=== PATIENT | male | born 1985 | race Asian ===

== ENCOUNTER 2024-12-23 14:51 | Inpatient (IN) | payer MEDICAID, OTHER ==
[~2024-12-23] VITALS: Ht 167.6 cm; Wt 63.6 kg
[2024-12-23 16:42] LABS: PLATELET COUNT (AUTO) 254 K/uL (150-450); RED BLOOD CELL COUNT(AUTO) 4.66 MIL/uL (4.50-5.90); RED CELL DISTRIBUTION WIDTH 13.5 % (11.5-14.5); WHITE BLOOD COUNT (AUTO) 8.4 K/uL (4.5-11.0)
[2024-12-23 16:50] LABS: CALCIUM, TOTAL 8.2 mg/dL (8.8-10.5); CREATININE 1.09 mg/dL (0.60-1.30); GLOMERULAR FILTR. RATE CALC > 60 mL/min (>60); GLUCOSE,RANDOM 136 mg/dL (70-110); SODIUM SERUM 139 mmol/L (136-145); UREA NITROGEN, BLOOD 24 mg/dL (7-18)
[2024-12-23] MEDS: SODIUM CHLORIDE 0.9% 1,000 ML IV ONE ×2 (16:54→17:41)
[2024-12-23 16:57] LABS: ASPARTATE AMINOTRANSFERASE 21 U/L (15-37); TOTAL PROTEIN, SERUM 6.0 g/dL (6.4-8.2)
[2024-12-23 16:58] LABS: CREATINE KINASE, TOTAL ONLY 393.0 U/L (39-308)
[2024-12-23 17:01] LABS: TROPONIN I-HIGH SENSITIVITY 15 ng/L (<76)
[2024-12-23] MEDS ORDERED: MAGNESIUM HYDROXIDE SUSPENSION 30 ML UDCUP PO PRN (19:00)
[2024-12-23] MEDS ORDERED: ZOLPIDEM TARTRATE 5 MG TABLET PO PRN (19:00)
[2024-12-23] MEDS ORDERED: ACETAMINOPHEN 325 MG TABLET PO PRN (19:00)
[2024-12-23] MEDS ORDERED: IPRATROPIUM BROMIDE 0.5 MG/2.5 ML NEB SOLUTION NEB PRN (19:00)
[2024-12-23] MEDS ORDERED: ALBUTEROL SULFATE 2.5 MG/0.5 ML NEB SOLUTION NEB PRN (19:00)
[2024-12-23] MEDS ORDERED: ONDANSETRON HCL 4 MG/2 ML VIAL IVP PRN (19:00)
[2024-12-23] MEDS ORDERED: BISACODYL 10 MG RECTAL RECTAL SUPPOSITORY PR PRN (19:00)
[2024-12-23] MEDS: ACETAMINOPHEN 500 MG TABLET PO ONE (19:25)
[2024-12-23 23:04] VITALS: BP 139/90; PULSE 84; RESP 19; TEMP 97.5; O2SAT 99
[2024-12-23] MEDS: HEPARIN SODIUM,PORCINE 5,000 UNITS/ML VIAL SQ SCH (23:51)
[2024-12-23 23:54] LABS: APPEARANCE,URINE CLEAR (CLEAR); GLUCOSE, URINE (UA) 70-100 mg/dL (NEGATIVE); LEUKOCYTE ESTERASE ,URINE NEGATIVE (NEGATIVE); NITRATE,URINE NEGATIVE (NEGATIVE); OCCULT BLOOD,URINE NEGATIVE (NEGATIVE); SPECIFIC GRAVITIY, URINE 1.012 (1.003-1.030)
[2024-12-24] MEDS: SODIUM CHLORIDE 0.9% 1,000 ML IV SCH (00:48)
[2024-12-24 05:56] VITALS: BP 157/97; PULSE 89; RESP 19; TEMP 97.7; O2SAT 98
[2024-12-24 08:03] VITALS: BP 130/100; PULSE 95; RESP 19; TEMP 98.4; O2SAT 95
[2024-12-24] MEDS: PANTOPRAZOLE SODIUM 40 MG DR TABLET PO SCH (08:25)
[2024-12-24 15:03] LABS: COVID AG,FIA SOURCE NASAL SWAB
[2024-12-24 15:34] LABS: SARS-COV2 (COVID) ANTIGEN,FIA Negative (Negative)
[2024-12-24 16:00] VITALS: BP 133/92; PULSE 90; RESP 19; TEMP 98.8; O2SAT 98
[2024-12-24 20:00] VITALS: BP 135/92; PULSE 97; RESP 18; TEMP 98.2; O2SAT 97
[2024-12-25] MEDS ORDERED: RISP1TAB48 PO (10:24)
== END 2024-12-24 21:59 | DRG 722 ==
LOC: EMS 14:51 → EDH 18:58 → 4E 22:30
PROVIDERS: ADMIT Hospitalist; ATTEND Hospitalist
DX: R50.9 Fever, unspecified (principal); F20.0 Paranoid schizophrenia; F79 Unspecified intellectual disabilities; Z20.822 Contact with and (suspected) exposure to COVID-19
CPT/HCPCS: 71045; 80048; 80076; 81001; 82550; 83690; 83735; 84484; 85025; 87040; 93005; 99285; G0378; J1644; J7030; 36415-L1; 36415-TC

== ENCOUNTER 2024-12-24 15:32 | Inpatient (IN) | payer MEDICAID, OTHER ==
[~2024-12-24] VITALS: Ht 167.6 cm; Wt 69.9 kg
[2024-12-24] MEDS ORDERED: ZOLPIDEM TARTRATE 10 MG TABLET PO PRN (16:00)
[2024-12-24 22:00] VITALS: BP 135/85; PULSE 76; RESP 18; TEMP 97.6; O2SAT 99
[2024-12-24] MEDS ORDERED: IBUPROFEN 600 MG TABLET PO PRN (22:45)
[2024-12-24] MEDS ORDERED: LOPERAMIDE HCL 2 MG CAPSULE PO PRN (22:45)
[2024-12-24] MEDS ORDERED: BACITRACIN 28 GM OINTMENT TP PRN (22:45)
[2024-12-24] MEDS ORDERED: OMEPRAZOLE 20 MG CAPSULE PO PRN (22:45)
[2024-12-24] MEDS ORDERED: DOCUSATE SODIUM 100 MG CAPSULE PO PRN (22:45)
[2024-12-24] MEDS ORDERED: MAGNESIUM HYDROXIDE SUSPENSION 30 ML UDCUP PO PRN (22:45)
[2024-12-24] MEDS ORDERED: ACETAMINOPHEN 325 MG TABLET PO PRN (22:45)
[2024-12-24] MEDS ORDERED: BENZOCAINE/MENTHOL [CEPACOL] LOZENGE PO PRN (22:45)
[2024-12-24] MEDS ORDERED: ALBUTEROL SULFATE HFA 90 MCG/PUFF 8 GM INHALER IH PRN (22:45)
[2024-12-24] MEDS ORDERED: PETROLATUM,WHITE 28 GM JELLY TP PRN (22:45)
[2024-12-24] MEDS ORDERED: MAG HYDROX/ALUMINUM HYD/SIMETH ES 30 ML SUSPENSION UDCUP PO PRN (22:45)
[2024-12-24] MEDS ORDERED: ONDANSETRON 4 MG TABLET PO PRN (22:45)
[2024-12-25] MEDS ORDERED: IPRATROPIUM BROMIDE 0.5 MG/2.5 ML NEB SOLUTION NEB PRN
[2024-12-25] MEDS ORDERED: ALBUTEROL SULFATE 2.5 MG/0.5 ML NEB SOLUTION NEB PRN
[2024-12-25 09:23] VITALS: BP 155/95; PULSE 90; RESP 16; TEMP 98.4; O2SAT 97
[2024-12-25] MEDS ORDERED: RISP1TAB48 PO (10:24)
[2024-12-25 20:03] VITALS: BP 130/88; PULSE 86; RESP 16; TEMP 98.2; O2SAT 97
[2024-12-26 10:57] VITALS: BP 139/95; PULSE 98; RESP 18; TEMP 97.9; O2SAT 99
[2024-12-26 20:16] VITALS: BP 134/86; PULSE 64; RESP 18; TEMP 97.6; O2SAT 100
[2024-12-27 12:48] VITALS: BP 128/100; PULSE 98; RESP 18; TEMP 97.9; O2SAT 98
[2024-12-27 21:31] VITALS: BP 145/100; PULSE 99; RESP 18; TEMP 98.1; O2SAT 99
[2024-12-28] MEDS: ETHYL ALCOHOL 62% ANTISEPTIC NASAL SANITIZER 0.6 ML AMPUL NASAL SCH (08:49)
[2024-12-28 10:39] VITALS: BP 134/81; PULSE 95; RESP 16; TEMP 98; O2SAT 100
[2024-12-28 21:20] VITALS: BP 113/75; PULSE 86; RESP 18; TEMP 97.7; O2SAT 98
[2024-12-29 09:35] VITALS: BP 141/91; PULSE 94; RESP 18; TEMP 97.8; O2SAT 98
[2024-12-29 21:17] VITALS: BP 135/87; PULSE 96; RESP 18; TEMP 98; O2SAT 98
[2024-12-30 08:09] VITALS: BP 130/100; PULSE 95; RESP 16; TEMP 97.9; O2SAT 98
[2024-12-30 21:20] VITALS: BP 136/78; PULSE 66; RESP 18; TEMP 98; O2SAT 98
[2024-12-31 08:58] VITALS: BP 135/86; PULSE 92; RESP 16; TEMP 98.4; O2SAT 99
[2024-12-31 21:04] VITALS: BP 157/119; PULSE 78; RESP 18; TEMP 98.3; O2SAT 98
[2025-01-01 09:54] VITALS: BP 134/83; PULSE 88; RESP 16; TEMP 97.9; O2SAT 100
[2025-01-01 20:25] VITALS: BP 123/75; PULSE 86; RESP 18; TEMP 97.8; O2SAT 100
[2025-01-02 10:44] VITALS: BP 141/88; PULSE 75; RESP 18; TEMP 98.1; O2SAT 99
[2025-01-02 20:20] VITALS: BP 145/92; PULSE 90; RESP 16; TEMP 98.1; O2SAT 99
[2025-01-03 09:47] VITALS: BP 146/96; PULSE 86; RESP 18; TEMP 98.2; O2SAT 100
[2025-01-03 20:46] VITALS: BP 139/86; PULSE 89; RESP 18; TEMP 97.9; O2SAT 100
[2025-01-04 10:09] VITALS: BP 130/97; PULSE 72; RESP 16; TEMP 97.9; O2SAT 98
[2025-01-04 20:07] VITALS: BP 126/83; PULSE 86; RESP 18; TEMP 98.2; O2SAT 99
[2025-01-05 10:23] VITALS: BP 131/99; PULSE 95; RESP 18; TEMP 97.5; O2SAT 100
[2025-01-05 20:51] VITALS: BP 137/90; PULSE 87; RESP 18; TEMP 98.6; O2SAT 95
[2025-01-06 09:45] VITALS: BP 129/90; PULSE 91; RESP 16; TEMP 98; O2SAT 98
[2025-01-06 20:06] VITALS: BP 135/90; PULSE 93; RESP 18; TEMP 98.2; O2SAT 98
[2025-01-07 15:28] VITALS: BP 141/91; PULSE 91; RESP 16; TEMP 98; O2SAT 98
[2025-01-07 20:34] VITALS: BP 141/99; PULSE 91; RESP 18; TEMP 98.2; O2SAT 100
[2025-01-08 07:50] LABS: PLATELET COUNT (AUTO) 249 K/uL (150-450); RED BLOOD CELL COUNT(AUTO) 5.31 MIL/uL (4.50-5.90); RED CELL DISTRIBUTION WIDTH 13.4 % (11.5-14.5); WHITE BLOOD COUNT (AUTO) 7.9 K/uL (4.5-11.0)
[2025-01-08 08:16] LABS: CALCIUM, TOTAL 8.5 mg/dL (8.8-10.5); CHOL/HDL RATIO 5.4 (4.2-7.3); CREATININE 0.84 mg/dL (0.60-1.30); GLOMERULAR FILTR. RATE CALC > 60 mL/min (>60); GLUCOSE,RANDOM 156 mg/dL (70-110); LDL CHOL (CALC.) 94 mg/dL (0-130); PHOSPHORUS 3.6 mg/dL (2.5-4.9); SODIUM SERUM 137 mmol/L (136-145); TOTAL PROTEIN, SERUM 7.1 g/dL (6.4-8.2)
[2025-01-08 10:44] VITALS: BP 135/92; PULSE 89; RESP 18; TEMP 97.8; O2SAT 100
[2025-01-08 11:24] LABS: UREA NITROGEN, BLOOD 15 mg/dL (7-18)
[2025-01-08 13:49] LABS: ASPARTATE AMINOTRANSFERASE 23 U/L (15-37)
[2025-01-08 20:32] VITALS: BP 139/94; PULSE 92; RESP 18; TEMP 98.2; O2SAT 98
[2025-01-09 09:24] VITALS: BP 141/88; PULSE 94; RESP 18; TEMP 97.3; O2SAT 100
[2025-01-09 09:30] VITALS: BP 141/88; PULSE 94; RESP 18; TEMP 97.3; O2SAT 100
[2025-01-09 22:51] VITALS: BP 151/89; PULSE 77; RESP 18; TEMP 98.1; O2SAT 99
[2025-01-10 10:55] VITALS: BP 132/79; PULSE 100; RESP 18; TEMP 97.5; O2SAT 98
[2025-01-10 21:24] VITALS: BP 124/71; PULSE 85; RESP 18; TEMP 97.7
[2025-01-11 10:53] VITALS: BP 132/92; PULSE 105; RESP 18
[2025-01-11 21:32] VITALS: BP 150/94; PULSE 96; RESP 18; TEMP 97.5; O2SAT 98
[2025-01-12 09:20] VITALS: BP 151/101; PULSE 93; RESP 18; O2SAT 98
[2025-01-12 20:21] VITALS: BP 133/92; PULSE 94; RESP 16; TEMP 97.7; O2SAT 98
[2025-01-13 13:59] VITALS: BP 143/97; PULSE 91; RESP 18; TEMP 97.9; O2SAT 99
[2025-01-13 20:24] VITALS: BP 153/101; PULSE 85; RESP 18; TEMP 98.1; O2SAT 100
[2025-01-14 10:28] VITALS: BP 144/97; PULSE 91; RESP 18; TEMP 98; O2SAT 95
[2025-01-14 20:44] VITALS: BP 129/94; PULSE 89; RESP 18; TEMP 98.4; O2SAT 98
[2025-01-15 10:36] VITALS: BP 140/94; PULSE 90; RESP 16; TEMP 97.9; O2SAT 98
[2025-01-15 20:06] VITALS: BP 150/92; PULSE 86; RESP 16; TEMP 97.6; O2SAT 99
[2025-01-16 09:44] VITALS: BP 148/97; PULSE 88; RESP 17; TEMP 97.9; O2SAT 99
[2025-01-16 10:18] VITALS: BP 148/97; RESP 17; TEMP 97.9
[2025-01-16 21:10] VITALS: BP 154/101; RESP 18; TEMP 97.5; O2SAT 98
[2025-01-17 15:31] VITALS: BP 148/96; PULSE 84; RESP 18; TEMP 97.8; O2SAT 99
[2025-01-17 20:29] VITALS: BP 147/99; PULSE 76; RESP 16; TEMP 98
[2025-01-18 09:49] VITALS: BP 147/99; PULSE 98; RESP 16; TEMP 97.9; O2SAT 100
[2025-01-18 21:59] VITALS: BP 150/94; PULSE 94; RESP 18; TEMP 98; O2SAT 99
[2025-01-19 09:08] VITALS: BP 142/97; PULSE 93; RESP 18; TEMP 98.1; O2SAT 99
[2025-01-19 20:00] VITALS: BP_SYST 141; BP_DIAS 100; BP_DIAS 102; PULSE 90; RESP 20; TEMP 98.2; O2SAT 98
[2025-01-20 14:40] VITALS: BP 137/100; PULSE 82; RESP 18; TEMP 97.9; O2SAT 99
[2025-01-20 20:58] VITALS: BP 127/86; PULSE 74; RESP 18; TEMP 98.2; O2SAT 99
[2025-01-21 06:46] LABS: PLATELET COUNT (AUTO) 225 K/uL (150-450); RED BLOOD CELL COUNT(AUTO) 5.28 MIL/uL (4.50-5.90); RED CELL DISTRIBUTION WIDTH 13.5 % (11.5-14.5); WHITE BLOOD COUNT (AUTO) 7.3 K/uL (4.5-11.0)
[2025-01-21 07:21] LABS: ASPARTATE AMINOTRANSFERASE 17 U/L (15-37); CALCIUM, TOTAL 8.5 mg/dL (8.8-10.5); CHOL/HDL RATIO 4.7 (4.2-7.3); CREATININE 0.64 mg/dL (0.60-1.30); GLOMERULAR FILTR. RATE CALC > 60 mL/min (>60); GLUCOSE,RANDOM 142 mg/dL (70-110); LDL CHOL (CALC.) 96 mg/dL (0-130); PHOSPHORUS 3.8 mg/dL (2.5-4.9); SODIUM SERUM 138 mmol/L (136-145); TOTAL PROTEIN, SERUM 7.0 g/dL (6.4-8.2); UREA NITROGEN, BLOOD 15 mg/dL (7-18)
[2025-01-21] MEDS ORDERED: DEXTROSE 50%-WATER 25 GM/50 ML SYRINGE IVP PRN (09:15)
[2025-01-21 10:55] VITALS: BP 148/95; PULSE 74; RESP 18; TEMP 97.7; O2SAT 99
[2025-01-21 17:10] LABS: GLUCOMETER DEV NAME(LOC) 3E.C; GLUCOSE,POINT OF CARE 156 MG/DL (70-110)
[2025-01-21] MEDS: INSULIN LISPRO 100 UNITS/ML SQ PRN (18:05)
[2025-01-21 20:21] LABS: GLUCOMETER DEV NAME(LOC) 3E.C; GLUCOSE,POINT OF CARE 152 MG/DL (70-110)
[2025-01-21 22:00] VITALS: BP 142/97; PULSE 79; RESP 19; TEMP 98.2; O2SAT 99
[2025-01-22 06:05] LABS: GLUCOMETER DEV NAME(LOC) 3E.C; GLUCOSE,POINT OF CARE 130 MG/DL (70-110)
[2025-01-22] MEDS: OMEGA-3/DHA/EPA/FISH OIL 1,000 MG CAPSULE PO SCH (08:24)
[2025-01-22 10:28] VITALS: BP 143/92; PULSE 84; RESP 18; TEMP 97.9; O2SAT 98
[2025-01-22 11:55] LABS: GLUCOMETER DEV NAME(LOC) 3E.C; GLUCOSE,POINT OF CARE 141 MG/DL (70-110)
[2025-01-22 17:15] LABS: GLUCOMETER DEV NAME(LOC) 3E.C; GLUCOSE,POINT OF CARE 132 MG/DL (70-110)
[2025-01-22 20:16] VITALS: BP 126/86; PULSE 90; RESP 16; TEMP 97.9; O2SAT 100
[2025-01-22 20:41] LABS: GLUCOMETER DEV NAME(LOC) 3E.C; GLUCOSE,POINT OF CARE 180 MG/DL (70-110)
[2025-01-23 06:26] LABS: GLUCOMETER DEV NAME(LOC) 3E.C; GLUCOSE,POINT OF CARE 147 MG/DL (70-110)
[2025-01-23 08:33] VITALS: BP 138/92; PULSE 84; RESP 16; TEMP 97.8; O2SAT 100
[2025-01-23 11:50] LABS: GLUCOMETER DEV NAME(LOC) 3E.C; GLUCOSE,POINT OF CARE 180 MG/DL (70-110)
[2025-01-23 17:06] LABS: GLUCOMETER DEV NAME(LOC) 3E.C; GLUCOSE,POINT OF CARE 199 MG/DL (70-110)
[2025-01-23 21:15] LABS: GLUCOMETER DEV NAME(LOC) 3E.C; GLUCOSE,POINT OF CARE 124 MG/DL (70-110)
[2025-01-23 22:19] VITALS: BP 139/89; PULSE 98; RESP 17; TEMP 98.2; O2SAT 99
[2025-01-24 06:36] LABS: GLUCOMETER DEV NAME(LOC) 3E.C; GLUCOSE,POINT OF CARE 137 MG/DL (70-110)
[2025-01-24 10:14] VITALS: BP 117/84; PULSE 86; RESP 17; TEMP 98.3; O2SAT 98
[2025-01-24 11:45] LABS: GLUCOMETER DEV NAME(LOC) 3E.C; GLUCOSE,POINT OF CARE 170 MG/DL (70-110)
[2025-01-24 17:25] LABS: GLUCOMETER DEV NAME(LOC) 3E.C; GLUCOSE,POINT OF CARE 256 MG/DL (70-110)
[2025-01-24 20:50] LABS: GLUCOMETER DEV NAME(LOC) 3E.C; GLUCOSE,POINT OF CARE 101 MG/DL (70-110)
[2025-01-24 21:40] VITALS: BP 138/86; PULSE 82; RESP 18; TEMP 98; O2SAT 98
[2025-01-25 06:25] LABS: GLUCOMETER DEV NAME(LOC) 3E.C; GLUCOSE,POINT OF CARE 133 MG/DL (70-110)
[2025-01-25 08:35] VITALS: BP 124/90; PULSE 97; RESP 16; TEMP 98; O2SAT 98
[2025-01-25 11:55] LABS: GLUCOMETER DEV NAME(LOC) 3E.C; GLUCOSE,POINT OF CARE 150 MG/DL (70-110)
[2025-01-25 17:26] LABS: GLUCOMETER DEV NAME(LOC) 3E.C; GLUCOSE,POINT OF CARE 162 MG/DL (70-110)
[2025-01-25 20:08] VITALS: BP 140/97; PULSE 90; RESP 16; TEMP 98; O2SAT 100
[2025-01-25 20:41] LABS: GLUCOMETER DEV NAME(LOC) 3E.C; GLUCOSE,POINT OF CARE 154 MG/DL (70-110)
[2025-01-26 06:41] LABS: GLUCOMETER DEV NAME(LOC) 3E.C; GLUCOSE,POINT OF CARE 125 MG/DL (70-110)
[2025-01-26 10:46] VITALS: BP 133/87; PULSE 79; RESP 18; TEMP 97.9; O2SAT 100
[2025-01-26 11:51] LABS: GLUCOMETER DEV NAME(LOC) 3E.C; GLUCOSE,POINT OF CARE 193 MG/DL (70-110)
[2025-01-26 16:56] LABS: GLUCOMETER DEV NAME(LOC) 3E.C; GLUCOSE,POINT OF CARE 189 MG/DL (70-110)
[2025-01-26 20:00] VITALS: BP 135/89; PULSE 80; RESP 18; TEMP 98; O2SAT 99
[2025-01-26 20:41] LABS: GLUCOMETER DEV NAME(LOC) 3E.C; GLUCOSE,POINT OF CARE 107 MG/DL (70-110)
[2025-01-27 06:15] LABS: GLUCOMETER DEV NAME(LOC) 3E.C; GLUCOSE,POINT OF CARE 119 MG/DL (70-110)
[2025-01-27 10:47] VITALS: BP 131/96; PULSE 89; RESP 18; TEMP 98.2; O2SAT 97
[2025-01-27 11:51] LABS: GLUCOMETER DEV NAME(LOC) 3E.C; GLUCOSE,POINT OF CARE 149 MG/DL (70-110)
[2025-01-27 16:31] LABS: GLUCOMETER DEV NAME(LOC) 3E.C; GLUCOSE,POINT OF CARE 134 MG/DL (70-110)
[2025-01-27 20:26] LABS: GLUCOMETER DEV NAME(LOC) 3E.C; GLUCOSE,POINT OF CARE 135 MG/DL (70-110)
[2025-01-27 22:54] VITALS: BP 134/75; PULSE 98; RESP 18; TEMP 97.7; O2SAT 99
[2025-01-28 06:15] LABS: GLUCOMETER DEV NAME(LOC) 3E.C; GLUCOSE,POINT OF CARE 112 MG/DL (70-110)
[2025-01-28 10:38] VITALS: BP 136/95; PULSE 92; RESP 16; TEMP 98.2; O2SAT 99
[2025-01-28 11:55] LABS: GLUCOMETER DEV NAME(LOC) 3E.C; GLUCOSE,POINT OF CARE 141 MG/DL (70-110)
[2025-01-28 17:10] LABS: GLUCOMETER DEV NAME(LOC) 3E.C; GLUCOSE,POINT OF CARE 186 MG/DL (70-110)
[2025-01-28 20:00] VITALS: BP 140/95; PULSE 83; RESP 18; TEMP 97.1; O2SAT 99
[2025-01-28 21:31] LABS: GLUCOMETER DEV NAME(LOC) 3E.C; GLUCOSE,POINT OF CARE 123 MG/DL (70-110)
[2025-01-29 06:45] LABS: GLUCOMETER DEV NAME(LOC) 3E.C; GLUCOSE,POINT OF CARE 108 MG/DL (70-110)
[2025-01-29 09:57] VITALS: BP 130/90; PULSE 89; RESP 18; TEMP 97.5; O2SAT 97
[2025-01-29 12:20] LABS: GLUCOMETER DEV NAME(LOC) 3E.C; GLUCOSE,POINT OF CARE 141 MG/DL (70-110)
[2025-01-29 17:40] LABS: GLUCOMETER DEV NAME(LOC) 3E.C; GLUCOSE,POINT OF CARE 142 MG/DL (70-110)
[2025-01-29 20:04] VITALS: BP 115/77; PULSE 96; RESP 16; TEMP 98.6; O2SAT 99
[2025-01-29 20:35] LABS: GLUCOMETER DEV NAME(LOC) 3E.C; GLUCOSE,POINT OF CARE 148 MG/DL (70-110)
[2025-01-30 06:50] LABS: GLUCOMETER DEV NAME(LOC) 3E.C; GLUCOSE,POINT OF CARE 127 MG/DL (70-110)
[2025-01-30 09:55] VITALS: BP 118/85; PULSE 91; RESP 18; TEMP 98.2; O2SAT 100
[2025-01-30 12:11] LABS: GLUCOMETER DEV NAME(LOC) 3E.C; GLUCOSE,POINT OF CARE 185 MG/DL (70-110)
[2025-01-30 17:41] LABS: GLUCOMETER DEV NAME(LOC) 3E.C; GLUCOSE,POINT OF CARE 133 MG/DL (70-110)
[2025-01-30 20:35] LABS: GLUCOMETER DEV NAME(LOC) 3E.C; GLUCOSE,POINT OF CARE 93 MG/DL (70-110)
[2025-01-30 21:22] VITALS: BP 119/86; PULSE 71; RESP 17; TEMP 98.1; O2SAT 98
[2025-01-31 06:45] LABS: GLUCOMETER DEV NAME(LOC) 3E.C; GLUCOSE,POINT OF CARE 119 MG/DL (70-110)
[2025-01-31 10:02] VITALS: BP 124/75; PULSE 82; RESP 19; TEMP 97.7; O2SAT 82
[2025-01-31 11:41] LABS: GLUCOMETER DEV NAME(LOC) 3E.C; GLUCOSE,POINT OF CARE 189 MG/DL (70-110)
[2025-01-31 16:40] LABS: GLUCOMETER DEV NAME(LOC) 3E.C; GLUCOSE,POINT OF CARE 174 MG/DL (70-110)
[2025-01-31 20:30] LABS: GLUCOMETER DEV NAME(LOC) 3E.C; GLUCOSE,POINT OF CARE 108 MG/DL (70-110)
[2025-01-31 22:47] VITALS: BP 121/80; PULSE 93; RESP 18; TEMP 98; O2SAT 98
[2025-02-01 06:46] LABS: GLUCOMETER DEV NAME(LOC) 3E.C; GLUCOSE,POINT OF CARE 109 MG/DL (70-110)
[2025-02-01 08:52] VITALS: BP 114/82; PULSE 83; RESP 18; TEMP 98.2; O2SAT 99
[2025-02-01 12:00] LABS: GLUCOMETER DEV NAME(LOC) 3E.C; GLUCOSE,POINT OF CARE 112 MG/DL (70-110)
[2025-02-01 17:15] LABS: GLUCOMETER DEV NAME(LOC) 3E.C; GLUCOSE,POINT OF CARE 163 MG/DL (70-110)
[2025-02-01 21:05] LABS: GLUCOMETER DEV NAME(LOC) 3E.C; GLUCOSE,POINT OF CARE 149 MG/DL (70-110)
[2025-02-01 22:12] VITALS: BP 128/84; PULSE 87; RESP 18; TEMP 98.1; O2SAT 99
[2025-02-02 07:01] LABS: GLUCOMETER DEV NAME(LOC) 3E.C; GLUCOSE,POINT OF CARE 122 MG/DL (70-110)
[2025-02-02 09:00] VITALS: BP 132/96; PULSE 90; RESP 18; TEMP 97.9; O2SAT 99
[2025-02-02 11:50] LABS: GLUCOMETER DEV NAME(LOC) 3E.C; GLUCOSE,POINT OF CARE 124 MG/DL (70-110)
[2025-02-02 17:11] LABS: GLUCOMETER DEV NAME(LOC) 3E.C; GLUCOSE,POINT OF CARE 119 MG/DL (70-110)
[2025-02-02 20:29] VITALS: BP 132/86; PULSE 81; RESP 16; TEMP 97.8; O2SAT 98
[2025-02-02 21:21] LABS: GLUCOMETER DEV NAME(LOC) 3E.C; GLUCOSE,POINT OF CARE 110 MG/DL (70-110)
[2025-02-03 06:56] LABS: GLUCOMETER DEV NAME(LOC) 3E.C; GLUCOSE,POINT OF CARE 105 MG/DL (70-110)
[2025-02-03 12:01] LABS: GLUCOMETER DEV NAME(LOC) 3E.C; GLUCOSE,POINT OF CARE 162 MG/DL (70-110)
[2025-02-03 14:47] VITALS: BP 114/84; PULSE 83; RESP 16; TEMP 98.1; O2SAT 99
[2025-02-03 17:31] LABS: GLUCOMETER DEV NAME(LOC) 3E.C; GLUCOSE,POINT OF CARE 148 MG/DL (70-110)
[2025-02-03 20:15] LABS: GLUCOMETER DEV NAME(LOC) 3E.C; GLUCOSE,POINT OF CARE 138 MG/DL (70-110)
[2025-02-03 20:37] VITALS: BP 126/85; PULSE 98; RESP 18; TEMP 98.6
[2025-02-04 06:20] LABS: GLUCOMETER DEV NAME(LOC) 3E.C; GLUCOSE,POINT OF CARE 117 MG/DL (70-110)
[2025-02-04 11:31] LABS: GLUCOMETER DEV NAME(LOC) 3E.C; GLUCOSE,POINT OF CARE 129 MG/DL (70-110)
[2025-02-04 13:02] VITALS: BP 120/92; PULSE 98; RESP 18; TEMP 97.6
[2025-02-04 17:51] LABS: GLUCOMETER DEV NAME(LOC) 3E.C; GLUCOSE,POINT OF CARE 137 MG/DL (70-110)
[2025-02-04 20:51] LABS: GLUCOMETER DEV NAME(LOC) 3E.C; GLUCOSE,POINT OF CARE 117 MG/DL (70-110)
[2025-02-04 21:49] VITALS: BP 127/87; PULSE 84; RESP 18; TEMP 98; O2SAT 97
[2025-02-05 06:36] LABS: GLUCOMETER DEV NAME(LOC) 3E.C; GLUCOSE,POINT OF CARE 135 MG/DL (70-110)
[2025-02-05 08:53] VITALS: BP 116/92; PULSE 88; RESP 18; TEMP 97.5; O2SAT 97
[2025-02-05 11:50] LABS: GLUCOMETER DEV NAME(LOC) 3E.C; GLUCOSE,POINT OF CARE 206 MG/DL (70-110)
[2025-02-05 16:51] LABS: GLUCOMETER DEV NAME(LOC) 3E.C; GLUCOSE,POINT OF CARE 131 MG/DL (70-110)
[2025-02-05 20:53] VITALS: BP 132/84; PULSE 80; RESP 18; TEMP 97.8
[2025-02-05 21:01] LABS: GLUCOMETER DEV NAME(LOC) 3E.C; GLUCOSE,POINT OF CARE 105 MG/DL (70-110)
[2025-02-06 05:26] LABS: GLUCOMETER DEV NAME(LOC) 3E.C; GLUCOSE,POINT OF CARE 113 MG/DL (70-110)
[2025-02-06 11:41] LABS: GLUCOMETER DEV NAME(LOC) 3E.C; GLUCOSE,POINT OF CARE 161 MG/DL (70-110)
[2025-02-06 14:48] VITALS: BP 142/94; PULSE 91; RESP 18; TEMP 97.7; O2SAT 99
[2025-02-06 17:35] LABS: GLUCOMETER DEV NAME(LOC) 3E.C; GLUCOSE,POINT OF CARE 138 MG/DL (70-110)
[2025-02-06 20:27] VITALS: BP 138/86; PULSE 90; RESP 18; TEMP 98; O2SAT 99
[2025-02-06 20:50] LABS: GLUCOMETER DEV NAME(LOC) 3E.C; GLUCOSE,POINT OF CARE 105 MG/DL (70-110)
[2025-02-07 06:55] LABS: GLUCOMETER DEV NAME(LOC) 3E.C; GLUCOSE,POINT OF CARE 144 MG/DL (70-110)
[2025-02-07 08:31] VITALS: BP 126/81; PULSE 77; RESP 18; TEMP 97.7; O2SAT 98
[2025-02-07 12:36] LABS: GLUCOMETER DEV NAME(LOC) 3E.C; GLUCOSE,POINT OF CARE 161 MG/DL (70-110)
[2025-02-07 17:05] LABS: GLUCOMETER DEV NAME(LOC) 3E.C; GLUCOSE,POINT OF CARE 179 MG/DL (70-110)
[2025-02-07 20:31] LABS: GLUCOMETER DEV NAME(LOC) 3E.C; GLUCOSE,POINT OF CARE 138 MG/DL (70-110)
[2025-02-07 20:59] VITALS: BP 132/82; PULSE 79; RESP 18; TEMP 97.8
[2025-02-08 05:41] LABS: GLUCOMETER DEV NAME(LOC) 3E.C; GLUCOSE,POINT OF CARE 99 MG/DL (70-110)
[2025-02-08 09:00] VITALS: BP 126/89; PULSE 88; RESP 18; TEMP 97.7; O2SAT 99
[2025-02-08 11:41] LABS: GLUCOMETER DEV NAME(LOC) 3E.C; GLUCOSE,POINT OF CARE 156 MG/DL (70-110)
[2025-02-08 17:40] LABS: GLUCOMETER DEV NAME(LOC) 3E.C; GLUCOSE,POINT OF CARE 202 MG/DL (70-110)
[2025-02-08 21:16] VITALS: BP 132/97; PULSE 91; RESP 18; TEMP 98.1; O2SAT 97
[2025-02-08 21:46] LABS: GLUCOMETER DEV NAME(LOC) 3E.C; GLUCOSE,POINT OF CARE 114 MG/DL (70-110)
[2025-02-09 06:35] LABS: GLUCOMETER DEV NAME(LOC) 3E.C; GLUCOSE,POINT OF CARE 110 MG/DL (70-110)
[2025-02-09 08:12] VITALS: BP 121/92; PULSE 81; RESP 16; TEMP 97.7; O2SAT 100
[2025-02-09 11:30] LABS: GLUCOMETER DEV NAME(LOC) 3E.C; GLUCOSE,POINT OF CARE 162 MG/DL (70-110)
[2025-02-09 17:40] LABS: GLUCOMETER DEV NAME(LOC) 3E.C; GLUCOSE,POINT OF CARE 152 MG/DL (70-110)
[2025-02-09 20:09] VITALS: BP 137/93; PULSE 92; RESP 16; TEMP 97.9; O2SAT 100
[2025-02-09 20:41] LABS: GLUCOMETER DEV NAME(LOC) 3E.C; GLUCOSE,POINT OF CARE 102 MG/DL (70-110)
[2025-02-10 06:56] LABS: GLUCOMETER DEV NAME(LOC) 3E.C; GLUCOSE,POINT OF CARE 109 MG/DL (70-110)
[2025-02-10 09:11] VITALS: BP 116/81; PULSE 86; RESP 17; TEMP 97.9; O2SAT 98
[2025-02-10 11:32] LABS: GLUCOMETER DEV NAME(LOC) 3E.C; GLUCOSE,POINT OF CARE 150 MG/DL (70-110)
[2025-02-10 17:11] LABS: GLUCOMETER DEV NAME(LOC) 3E.C; GLUCOSE,POINT OF CARE 146 MG/DL (70-110)
[2025-02-10 20:25] VITALS: BP 142/96; PULSE 99; RESP 18; TEMP 97.4; O2SAT 98
[2025-02-10 21:11] LABS: GLUCOMETER DEV NAME(LOC) 3E.C; GLUCOSE,POINT OF CARE 147 MG/DL (70-110)
[2025-02-11 06:35] LABS: GLUCOMETER DEV NAME(LOC) 3E.C; GLUCOSE,POINT OF CARE 121 MG/DL (70-110)
[2025-02-11 08:20] VITALS: BP 134/93; PULSE 87; RESP 16; TEMP 98; O2SAT 99
[2025-02-11 11:35] LABS: GLUCOMETER DEV NAME(LOC) 3E.C; GLUCOSE,POINT OF CARE 142 MG/DL (70-110)
[2025-02-11 16:45] LABS: GLUCOMETER DEV NAME(LOC) 3E.C; GLUCOSE,POINT OF CARE 200 MG/DL (70-110)
[2025-02-11 20:00] VITALS: BP 132/94; PULSE 82; RESP 18; TEMP 98.8; O2SAT 99
[2025-02-11 21:30] LABS: GLUCOMETER DEV NAME(LOC) 3E.C; GLUCOSE,POINT OF CARE 113 MG/DL (70-110)
[2025-02-12 06:40] LABS: GLUCOMETER DEV NAME(LOC) 3E.C; GLUCOSE,POINT OF CARE 117 MG/DL (70-110)
[2025-02-12 09:07] VITALS: BP 124/92; PULSE 91; RESP 18; TEMP 97.7; O2SAT 98
[2025-02-12 11:21] LABS: GLUCOMETER DEV NAME(LOC) 3E.C; GLUCOSE,POINT OF CARE 128 MG/DL (70-110)
[2025-02-12 17:51] LABS: GLUCOMETER DEV NAME(LOC) 3E.C; GLUCOSE,POINT OF CARE 170 MG/DL (70-110)
[2025-02-12 20:00] VITALS: BP 149/99; PULSE 99; RESP 16; TEMP 98.1; O2SAT 98
[2025-02-12 21:25] LABS: GLUCOMETER DEV NAME(LOC) 3E.C; GLUCOSE,POINT OF CARE 119 MG/DL (70-110)
[2025-02-13 06:36] LABS: GLUCOMETER DEV NAME(LOC) 3E.C; GLUCOSE,POINT OF CARE 122 MG/DL (70-110)
[2025-02-13 08:15] VITALS: BP 132/92; PULSE 95; RESP 16; TEMP 96.8; O2SAT 99
[2025-02-13 11:41] LABS: GLUCOMETER DEV NAME(LOC) 3E.C; GLUCOSE,POINT OF CARE 198 MG/DL (70-110)
[2025-02-13 17:25] LABS: GLUCOMETER DEV NAME(LOC) 3E.C; GLUCOSE,POINT OF CARE 153 MG/DL (70-110)
[2025-02-13 20:00] VITALS: BP 117/83; PULSE 87; RESP 16; TEMP 97.7; O2SAT 98
[2025-02-13 20:36] LABS: GLUCOMETER DEV NAME(LOC) 3E.C; GLUCOSE,POINT OF CARE 123 MG/DL (70-110)
[2025-02-14 06:56] LABS: GLUCOMETER DEV NAME(LOC) 3E.C; GLUCOSE,POINT OF CARE 115 MG/DL (70-110)
[2025-02-14 12:06] LABS: GLUCOMETER DEV NAME(LOC) 3E.C; GLUCOSE,POINT OF CARE 144 MG/DL (70-110)
[2025-02-14 17:51] LABS: GLUCOMETER DEV NAME(LOC) 3E.C; GLUCOSE,POINT OF CARE 149 MG/DL (70-110)
[2025-02-14 18:19] VITALS: BP 126/82; PULSE 96; RESP 17; TEMP 97.8; O2SAT 99
[2025-02-14 20:31] LABS: GLUCOMETER DEV NAME(LOC) 3EX.2; GLUCOSE,POINT OF CARE 142 MG/DL (70-110)
[2025-02-14 21:06] VITALS: BP 110/86; PULSE 83; RESP 18; TEMP 97.2; O2SAT 98
[2025-02-15 07:11] LABS: GLUCOMETER DEV NAME(LOC) 3E.C; GLUCOSE,POINT OF CARE 110 MG/DL (70-110)
[2025-02-15 08:00] VITALS: BP 129/86; PULSE 94; RESP 16; TEMP 97.8; O2SAT 99
[2025-02-15 12:01] LABS: GLUCOMETER DEV NAME(LOC) 3E.C; GLUCOSE,POINT OF CARE 142 MG/DL (70-110)
[2025-02-15 17:31] LABS: GLUCOMETER DEV NAME(LOC) 3E.C; GLUCOSE,POINT OF CARE 157 MG/DL (70-110)
[2025-02-15 20:36] VITALS: BP 107/97; PULSE 95; RESP 16; TEMP 97.5; O2SAT 99
[2025-02-15 21:05] LABS: GLUCOMETER DEV NAME(LOC) 3E.C; GLUCOSE,POINT OF CARE 95 MG/DL (70-110)
[2025-02-16 07:06] LABS: GLUCOMETER DEV NAME(LOC) 3E.C; GLUCOSE,POINT OF CARE 124 MG/DL (70-110)
[2025-02-16 09:15] VITALS: BP 108/85; PULSE 68; RESP 19; TEMP 97.6; O2SAT 100
[2025-02-16 12:20] LABS: GLUCOMETER DEV NAME(LOC) 3E.C; GLUCOSE,POINT OF CARE 136 MG/DL (70-110)
[2025-02-16 17:31] LABS: GLUCOMETER DEV NAME(LOC) 3E.C; GLUCOSE,POINT OF CARE 180 MG/DL (70-110)
[2025-02-16 20:02] VITALS: BP 121/94; PULSE 90; RESP 18; TEMP 98.3; O2SAT 96
[2025-02-16 20:21] LABS: GLUCOMETER DEV NAME(LOC) 3E.C; GLUCOSE,POINT OF CARE 126 MG/DL (70-110)
[2025-02-16] MEDS ORDERED: OMEG100033 PO (21:20)
[2025-02-16] MEDS ORDERED: LISI-893 PO (21:20)
[2025-02-16] MEDS ORDERED: METF-1211 PO (21:20)
[2025-02-16] MEDS ORDERED: RISP-32 PO (21:20)
[2025-02-17 06:36] LABS: GLUCOMETER DEV NAME(LOC) 3E.C; GLUCOSE,POINT OF CARE 134 MG/DL (70-110)
[2025-02-17 09:19] VITALS: BP 129/88; PULSE 90; RESP 18; TEMP 98.2; O2SAT 98
[2025-02-17] MEDS ORDERED: LISI-893 PO (11:44)
[2025-02-17] MEDS ORDERED: RISP-31 PO (11:44)
[2025-02-17] MEDS ORDERED: OMEG100033 PO (11:44)
[2025-02-17] MEDS ORDERED: METF-1211 PO (11:44)
[2025-02-17 12:10] LABS: GLUCOMETER DEV NAME(LOC) 3E.C; GLUCOSE,POINT OF CARE 134 MG/DL (70-110)
== END 2025-02-17 13:48 | disposition home or self-care (01) | DRG 750 ==
LOC: 3EC 21:00
PROVIDERS: ADMIT Psychiatry & Neurology Psychiatry; ATTEND Psychiatry & Neurology Psychiatry
PROC: GZHZZZZ Group Psychotherapy (ICD-10-PCS; principal; 2024-12-25)
PROC: GZ52ZZZ Individual Psychotherapy, Cognitive (ICD-10-PCS; 2024-12-25)
DX: F20.0 Paranoid schizophrenia (principal); F79 Unspecified intellectual disabilities; F41.9 Anxiety disorder, unspecified; Z56.0 Unemployment, unspecified; Z79.899 Other long term (current) drug therapy; G47.00 Insomnia, unspecified; K59.00 Constipation, unspecified; I10 Essential (primary) hypertension
CPT/HCPCS: 80053; 80061; 82962; 83036; 83735; 84100; 84443; 85025; 87081